=== PATIENT | female | born 1950 | race Caucasian/White ===

== ENCOUNTER 2019-02-18 18:46 | Emergency (ER) | payer BC, MEDICARE, OTHER ==
--- NOTE | 2019-02-19 02:39 | ER ---
REASON FOR EMERGENCY ROOM VISIT: Swelling in both legs. HISTORY OF PRESENT ILLNESS: This 68-year-old woman underwent right shoulder replacement surgery 3 days ago. Subsequent to that, she discontinued taking her normal dose of hydrochlorothiazide, which she has been taking for hypertension. The reason she did this is because her blood pressures have been ranging in the low 100s and she was afraid that her blood pressure was getting too low. She has not been up and about a great deal until today, but she has noticed swelling in both of her lower legs, particularly in the thighs, it is symmetrical and not associated with any pain. She denies any calf pain. She denies any numbness. She has not had any shortness of breath or chest pain or cough. She has not had any hemoptysis. PAST MEDICAL HISTORY: Significant for: 1. Arrhythmia. 2. Hypertension. 3. Depression. 4. GERD. ALLERGIES: INCLUDES PENICILLIN AND SULFA. MEDICATIONS: Include: 1. Hydrochlorothiazide 25 mg p.o. daily. 2. Simvastatin 40 mg p.o. daily. 3. Zoloft 50 mg p.o. daily. 4. Propranolol 60 mg p.o. daily. 5. Omeprazole 20 mg p.o. daily. SOCIAL HISTORY: She is a nonsmoker. Drinks occasional coffee and rarely drinks alcohol. REVIEW OF SYSTEMS: Pertinent positives and negatives as listed in the HPI. PHYSICAL EXAMINATION: GENERAL: Reveals an alert woman, in no acute distress. VITAL SIGNS: She is afebrile. Heart rate of 98, blood pressure 103/47, respiratory rate 16, O2 sats 98% on room air. HEENT: Unremarkable. CHEST: Clear to auscultation with good air exchange. No wheezes, rhonchi, or rales. CARDIAC: Regular rate without murmur. ABDOMEN: Soft. EXTREMITIES: She has no edema below the knees. Her color is good. Her feet are warm. Her posterior tibialis pulses are palpable. I cannot detect any edema in her thighs. She has a surgical dressing over her anterior right shoulder. IMPRESSION: Bilateral leg swelling, uncertain etiology. I think that being off her hydrochlorothiazide ever since before her surgery may have something to do with this. PLAN: I recommend that she restart her Hydrochlorthiazide. I did not feel that doing this would precipitously cause her blood pressure to lower to any significant extent. If her blood pressure does remain on the low side, she should see her provider again and discuss the possibility of coming off her diuretics. Certainly, if she should have increasing swelling or with pain or any other uncomfortable symptoms, she should get in touch with us or give us a call or return for another evaluation. All questions were answered. The patient understands and agrees with this plan. CYNDI /[id number] SEFERINO
== END 2019-02-18 19:16 | disposition home or self-care (01) ==
LOC: LB.ED 18:46
DX: R22.43 Localized swelling, mass and lump, lower limb, bilateral (principal); I10 Essential (primary) hypertension; K21.9 Gastro-esophageal reflux disease without esophagitis; F32.9 Major depressive disorder, single episode, unspecified; Z79.899 Other long term (current) drug therapy
CPT/HCPCS: 99282

== ENCOUNTER 2023-04-15 11:21 | Day surgery (SDC) | payer MEDICARE ==
[~2023-04-15 11:21] MED LIST: Metoclopramide 10 MG/2 ML SDV IV PRN; Sodium Chloride 0.9% 1,000 ML IV SCH
[2023-04-15] MEDS ORDERED: Propofol 1,000 MG/100 ML SDV ONE (13:30)
== END 2023-04-15 14:35 | disposition home or self-care (01) ==
LOC: LB.SDS 11:21
PROVIDERS: ATTEND Surgery
DX: Z12.11 Encounter for screening for malignant neoplasm of colon (principal); I10 Essential (primary) hypertension; E78.00 Pure hypercholesterolemia, unspecified; L98.8 Other specified disorders of the skin and subcutaneous tissue; F41.1 Generalized anxiety disorder; E66.9 Obesity, unspecified; Z68.28 Body mass index [BMI] 28.0-28.9, adult; Z79.899 Other long term (current) drug therapy; Z88.2 Allergy status to sulfonamides
CPT/HCPCS: J2704; J7030

== ENCOUNTER 2024-04-10 09:30 | Emergency (ER) | payer MEDICARE ==
[2024-04-10] MEDS: Losartan 50 MG Tab PO ONE (11:03)
[2024-04-10 11:13] VITALS: BP 200/85; PULSE 68
== END 2024-04-10 11:20 | disposition home or self-care (01) ==
LOC: LB.ED 09:30
DX: S09.90XA Unspecified injury of head, initial encounter (principal); E04.1 Nontoxic single thyroid nodule; I10 Essential (primary) hypertension; M19.90 Unspecified osteoarthritis, unspecified site; E78.00 Pure hypercholesterolemia, unspecified; Z88.0 Allergy status to penicillin; Z88.2 Allergy status to sulfonamides; Z79.82 Long term (current) use of aspirin; Z79.899 Other long term (current) drug therapy; W19.XXXA Unspecified fall, initial encounter; W22.8XXA Striking against or struck by other objects, initial encounter
CPT/HCPCS: 70450; 72125; 99284; A9270-GY